=== PATIENT | male | born 1945 | race Two or more races ===

== ENCOUNTER 2018-02-26 06:15 | Inpatient (IN) | payer MEDICARE, BC ==
--- NOTE | 2018-02-25 23:15 | Pre-op HX & Phy Repo 2 SIG ---
DATE OF ADMISSION: 02/26/2018 ATTENDING PHYSICIAN: Hayden Allen M.D. REASON FOR ADMISSION: Left knee total arthroplasty. HISTORY OF PRESENT ILLNESS: The patient is a 72-year-old male with history of osteoarthritis of the knee. He has had previous right knee replacement and now presents with left knee pain and scheduled for left total knee arthroplasty. The patient denies history of coronary artery disease, chest pain, and shortness of breath, but complains of dyspnea on exertion. PAST MEDICAL HISTORY: 1. Depression. 2. Diabetes. 3. Osteoarthritis. MEDICATIONS: Include Lexapro 10 mg daily, magnesium 200 mg daily, metformin 500 mg twice a day, and omega-3 daily. ALLERGIES: None known. REVIEW OF SYSTEMS: GENERAL: Denies weight loss, fever, chills, or night sweats. HEENT: Denies headache or sinus problem. PULMONARY: Denies cough or sputum production. CARDIOVASCULAR: Complains of dyspnea on exertion and fatigue. GASTROINTESTINAL: Denies dysphagia, dyspepsia, abdominal pain, nausea, vomiting, diarrhea, or constipation. GENITOURINARY: Denies dysuria or hematuria. MUSCULOSKELETAL: As noted above. PHYSICAL EXAMINATION: VITAL SIGNS: Blood pressure is 130/80, temperature afebrile, and heart rate is 84. GENERAL: The patient is an oriented male with mild obesity. HEENT: Unremarkable. NECK: Supple. LUNGS: Without rales or wheezes. CARDIAC: Examination S1 and S2 are normal without S3, S4. Jugular venous pressure is normal. ABDOMEN: Soft, obese, and nontender. Bowel sounds are present. EXTREMITIES: Without cyanosis, clubbing, or edema. DIAGNOSTIC DATA: EKG showed sinus rhythm with nonspecific ST-T changes with heart rate of 84 beats per minute. In view of his age and dyspnea on exertion, the patient underwent exercise echo study, which showed normal LV wall motion, without evidence of ischemia. Ejection fraction was 55%. There is mild mitral and aortic insufficiency noted. IMPRESSION: 1. Osteoarthritis of the knees with left knee pain. 2. Diabetes, out of control. 3. Depression. 4. Obesity. PLAN AND SUGGESTIONS: The patient is stable to proceed with surgery as planned and he will be followed postoperatively for management of his diabetes. He will be encouraged to ambulation to avoid thromboembolic complications. DVT prophylaxis will be initiated. The patient will be restarted on his oral medications . Blood sugars will be monitored postoperatively. Dr. Allen, thank you for allowing me to participate in the care of this patient and I will be happy to follow with you as necessary. Rick Boland M.D. DR: SANDIP JOB#: [id number] CC: Rick Boland M.D.; Fax#: [phone] The Chart
[~2018-02-26] VITALS: Ht 167.6 cm; Wt 97.5 kg
[2018-02-26] VITALS (13 sets, daily range): BP systolic 111–146; BP diastolic 15–87
[~2018-02-26 06:15] MED LIST: ASPIR 8181 MG ORAL; FISH OIL 1,0001 EAC4 ORAL; LEXAPRO10 MG ORAL; MAGNESIUM200 M1 PO; METFORMIN HCL500 M1 ORAL; celeBREX 200mg Cap **SURGERY PATIENTS ONLY ORAL ONE; oxyCONTIN 20mg tab ORAL ONE
[2018-02-26] MEDS ORDERED: ceFAZolin 1gm IVPB IVPB ONE ×2 (07:00)
--- NOTE | 2018-02-26 07:03 | Pre-Procedure Note/Attestation ---
Pre-Procedure Note/Attestation Complete Prior to Procedure Planned Procedure: left Procedure Narrative: lt total knee arthroplasty Indications for Procedure Pre-Operative Diagnosis: left knee arthritis Attestation I attest that I discussed the nature of the procedure; its benefits; risks and complications; and alternatives (and the risks and benefits of such alternatives ), prior to the procedure, with the patient (or the patient's legal graphic art sales representative). I attest that, if there was a reasonable possibility of needing a blood transfusion, the patient (or the patient's legal graphic art sales representative) was given the [facility] standardized written summary, pursuant to the Kit Lin Blood Safety Act ([place] Health and Safety Code # 1645, as amended). I attest that I re-evaluated the patient just prior to the surgery and that there has been no change in the patient's H&P, except as documented below: none Hayden Allen MD Feb 26, 2018 07:03
[2018-02-26] MEDS ORDERED: Milk of Magnesia 30ml Ud ORAL PRN (07:15)
[2018-02-26] MEDS ORDERED: Norco 5mg/325mg tab ORAL PRN (07:15)
[2018-02-26] MEDS ORDERED: HYDROmorphone 1mg/ml Carpuject SUBQ PRN (07:15)
--- NOTE | 2018-02-26 07:40 | Anethesia Preoperative Eval ---
Anesthesia Pre-op PMH/ROS General Date of Evaluation: Feb 26, 2018 Anesthesiologist: Bro ASA Score: ASA 2 Mallampati Score Class I : Soft palate, uvula, fauces, pillars visible Class II: Soft palate, uvula, fauces visible Class III: Soft palate, base of uvula visible Class IV: Only hard plate visible Mallampati Classification: Class III Surgeon: Tiffany Diagnosis: LEft knee OA Surgical Procedure: LEft TKR Anesthesia History: none Family History: no anesthesia problems Allergies: Coded Allergies: No Known Allergies (Verified , 05/30/11) Patient NPO?: Yes NPO Date: Feb 25, 2018 NPO Time: 2100 Past Medical History Cardiovascular: Denies: HTN, CAD, MT, valve dz, arrhythmia, other Pulmonary: Denies: asthma, COPD, RACHNA, other Gastrointestinal/Genitourinary: Denies: GERD, CRI, ESRD, other Neurologic/Psychiatric: Reports: depression/anxiety; Denies: dementia, CVA, TIA, other Endocrine: Reports: DM; Denies: hypothyroidism, steroids, other HEENT: Denies: cataract (L), cataract (R), glaucoma, YAKUTAT (L), YAKUTAT (R), other Hematology/Immune: Denies: anemia, DVT, bleeding disorder, other Musculoskeletal/Integumentary: Denies: OA, RA, DJD, DDD, edema, other PSxH Narrative: Right TKR Anesthesia Pre-op Phys. Exam Physician Exam Last Vital Signs Date Time Temp Pulse Resp B/P (MAP) Pulse Ox O2 Delivery O2 Flow Rate FiO2 02/26/18 07:06 97.8 80 20 142/87 (105) 95 02/26/18 06:51 Room Air Constitutional: NAD Cardiovascular: RRR Respiratory: CTA Airway Exam Mallampati Score: Class III MO: limited ROM: full Teeth: intact Anesthesia Pre-op A/P Labs see chart Studies Pre-op Studies: EKG - sr at 84, echo - stress ECHO-EF 55%, normal left wall motion, mild AI and MR Risk Assessment & Plan Assessment: ASA II Plan: SAB with GA and left femoral nerve block Status Change Before Surgery: No Pre-Antibiotics Drug: Ancef 2g Given Within 1 Hr of Incision: Yes Time Given: 10:15 Iris Pugh MD Feb 26, 2018 07:40
[2018-02-26] MEDS ORDERED: NeoSporin Gu Irrig 1ml Amp IRRIG ONE ×2 (09:21→11:26)
[2018-02-26] MEDS ORDERED: Bacitracin 50000 Units Vial ONE (09:21)
[2018-02-26] MEDS ORDERED: Tranexamic Acid 500 MG in NS 55 ML IVPB ONE (09:30)
[2018-02-26] MEDS ORDERED: Lidocaine 1% MPF 10mg/ml 5ml ONE (09:49)
[2018-02-26] MEDS ORDERED: LR 1000ml ONE (09:49)
[2018-02-26] MEDS ORDERED: Midazolam 2mg/2ml Inj ONE (09:49)
[2018-02-26] MEDS ORDERED: Propofol 200mg/20ml IV ONE (09:49)
[2018-02-26] MEDS ORDERED: fentaNYL 100 mcg/2 mL IV ONE (09:49)
[2018-02-26] MEDS ORDERED: Bupivacaine 0.5% Inj 30 ml vial INJ ONE (09:58)
[2018-02-26] MEDS ORDERED: Morphine Sulfate PF 10 ML ONE (10:05)
[2018-02-26] MEDS ORDERED: Ropivacaine 5mg/ml Vial 30ml INJ ONE (10:22)
[2018-02-26] MEDS ORDERED: LR 1000ml 1,000 ML IVLG SCH (10:40)
[2018-02-26] MEDS ORDERED: LORazepam Inj 2mg/ml 1ml IV PRN (10:45)
[2018-02-26] MEDS ORDERED: DiphenhydrAMINE 50mg/ml Inj IVP PRN (10:45)
[2018-02-26] MEDS ORDERED: fentaNYL 100 mcg/2 mL IV PRN (10:45)
[2018-02-26] MEDS ORDERED: Hydromorphone 0.5mg/0.5ml inj IVP PRN (10:45)
[2018-02-26] MEDS ORDERED: Bacitracin 50000 Units Vial IRRIG ONE (11:26)
[2018-02-26] MEDS ORDERED: NS Irrig 2000ml IRRIG ONE (11:27)
--- NOTE | 2018-02-26 12:25 | Brief Operative Note ---
Immediate Post Operative Note Operative Note Chief Complaint: left knee pain Pre-op Diagnosis: left knee arthritis Procedure: left total knee arthroplasty Post-op Diagnosis: same as pre-op Findings: consistent w/pre-op dx studies Surgeon: md nitesh Safety Person: ginny mcelroy Anesthesiologist: md page Anesthesia: general Specimen: yes Complications: none Condition: stable Fluids: ns Estimated Blood Loss: minimal Drains: none Implant(s) used?: Yes - [place] and nephew Whit Mcelroy Feb 26, 2018 12:25
--- NOTE | 2018-02-26 12:39 | Immediate Post-Op Evaluation ---
Immediate Post-Op Evalulation Immediate Post-Op Evalulation Procedure: Left TKR Date of Evaluation: Feb 26, 2018 Time of Evaluation: 12:40 IV Fluids: 1.7L Blood Products: 0 Estimated Blood Loss: 125 Urinary Output: 150 Blood Pressure Systolic: 125 Blood Pressure Diastolic: 58 Pulse Rate: 72 Respiratory Rate: 18 O2 Sat by Pulse Oximetry: 97 Temperature (Fahrenheit): 97.2 Pain Score (1-10): 0 Nausea: No Vomiting: No Complications 0 Patient Status: awake, reacts, patent, none Hydration Status: adequate Drug: Ancef 2g Given Within 1 Hr of Incision: Yes Time Given: 10:15 Iris Pugh MD Feb 26, 2018 12:39
--- NOTE | 2018-02-26 14:47 | Cardiology Progress Note ---
Assessment/Plan Status Narrative 1. DJD- 2. s/p L TKA 3. DM 4. Obesity 5. Depression Assessment/Plan Resume PO meds Monitor BS Pain management PT/Ot as per Dr. Allen CBC in AM Discussed with RN and with Dr. Allen. Subjective Cardiovascular: Reports: no symptoms Respiratory: Reports: no symptoms Gastrointestinal/Abdominal: Reports: no symptoms Genitourinary: Reports: no symptoms Subjective 02/26/18- s/p L TKA , pain controlled Objective Last 24 Hour Vital Signs Date Time Temp Pulse Resp B/P (MAP) Pulse Ox O2 Delivery O2 Flow Rate FiO2 02/26/18 13:15 72 15 137/60 99 Nasal Cannula 3 02/26/18 13:05 73 19 133/63 99 Nasal Cannula 3 02/26/18 12:55 73 14 135/55 99 Nasal Cannula 3 02/26/18 12:45 73 13 130/60 98 Simple Mask 6 02/26/18 12:40 79 15 112/53 98 Simple Mask 6 02/26/18 12:39 72 18 97 02/26/18 12:35 97.2 72 18 125/58 97 Simple Mask 6 02/26/18 07:06 97.8 80 20 142/87 (105) 95 02/26/18 06:51 Room Air Cardiovascular: normal rate, regular rhythm Respiratory/Chest: lungs clear Abdomen: normal bowel sounds, non tender, soft, no organomegaly Extremities: other - L knee wrapped, ice pack in place Rick Boland MD Feb 26, 2018 14:47
--- NOTE | 2018-02-26 15:35 | Diagnostic Imaging Report ---
Indication: Left knee pain 2 views of the left knee were obtained. Findings: Cemented total knee arthroplasty demonstrated. Postsurgical changes including soft tissue air mostly in the anterior part of the knee noted. No abnormalities of alignment or position of the prosthetic identified. No fracture seen. IMPRESSION: Status post left total knee replacement
[2018-02-26] MEDS ORDERED: oxyCONTIN 20mg tab ORAL SCH ×2 (16:00→16:30)
[2018-02-26] MEDS: D5 1/2NS w/KCl 20mEq 1,000 ML IV SCH ×2 (16:17→21:22)
[2018-02-26] MEDS: Docusate 100mg cap ORAL SCH (17:36)
[2018-02-26] MEDS: ceFAZolin sod 1 GM in D5W 55 ML IV SCH (17:36)
[2018-02-26] MEDS: metFORMIN 500mg tab ORAL SCH (17:36)
--- NOTE | 2018-02-26 23:30 | Operative Note - Dictated ---
DATE OF OPERATION: 02/26/2018 PREOPERATIVE DIAGNOSIS: Left knee end-stage arthritis with loss of full extension. POSTOPERATIVE DIAGNOSIS: Left knee end-stage arthritis with loss of full extension. PROCEDURE: Left total knee arthroplasty using Balderas and Nephew system with a Legion nonporous femoral cobalt chromium component size 7, size 5 tibial component, and a size 9 mm ultra cross-linked Legion deep-dish polyethylene with 32 mm patellar component, all cemented. SURGEON: Hayden Allen M.D. MANAGER APPLICATION: Whit Ovalles PA-C. ANESTHESIOLOGIST: Dr. Crabtree. ANESTHESIA: Spinal anesthesia combined with femoral nerve block. ESTIMATED BLOOD LOSS: Less than 100 mL. TOURNIQUET TIME: 79 minutes. COMPLICATIONS: None. BRIEF HISTORY: The patient is a very pleasant 72-year-old gentleman who has had ongoing left knee pain, limping, inability to walk for prolonged period of time. He failed all nonoperative treatment. He had a flexion contracture by about 7 degrees. After full discussion of risks and benefits of surgery and complications associated with it including infection, bleeding, neurovascular complication, possibility of DVT and PEs, loss of motion, infection requiring revision surgery, infection requiring resection arthroplasty, as well as other complications that may arise that are unknown, he opted for surgical treatment as described above. OPERATIVE PROCEDURE: The patient was brought to the operating room table and was placed supine. All pressure points were well-padded. Spinal anesthesia was induced. A femoral block was performed. Left knee was prepped and draped in usual sterile fashion after time-out was performed, tranexamic acid was given, and preop antibiotic was given. A standard anterior approach to the knee was undertaken. Medial parapatellar arthrotomy was performed. The patella was everted. The deep fibers of MCL were also released. The medial and lateral meniscus were resected. ACL and PCL were resected. Intramedullary access into the femur was obtained using a drill. An intramedullary guide was placed and distal femoral cut was performed in about 5 degrees of valgus. Once this was completed, sizing was performed and size 7 appeared to be the right-sized femur. At this point, the distal femoral cutting guide was placed in about 3 degrees of external rotation and anterior, posterior, and chamfer cuts were performed without any complications. At this point, a trial femur was applied and appeared to be in excellent position and excellent fit. Peg holes were well-punched. At this point, care was given to the tibia. The extramedullary tibial guide was applied. Medial, lateral, and posterior retractors were placed in. The patellar tendon was protected at this point, re-creating mechanical access, the standard tibial cut was performed taking 3 mm off the most-involved side. Once this was completed, the flexion-extension gap was checked. It was excellent. The flexion deformity had corrected. There was no need for optional cut. At this point, the medial and lateral laxity appeared to be perfect and there was excellent ligamentous balancing. At this point, all wounds were thoroughly irrigated using copious amount of fluid. The sizing of the tibia was performed and size 5 appeared to be the right size. This was placed in about 1-2 degrees of external rotation and the central stem was then punched without any complication. At this point, care was given to the patella. The patella was everted. The patellar thickness was checked and appeared to be 24 mm. At this point, standard patellar cut was performed with freehand technique and 13 mm patella was remaining. At this point, sizing was performed and 32 mm patella appeared to be the right size. The peg holes were drilled. At this point, the femoral component, tibial component, and patellar components were all trialed and a 9 mm poly was inserted. The 9 mm poly allowed full extension, full flexion, excellent stability at 0, 30 degrees, 45 degrees, and 90 degrees of flexion and there was excellent patellofemoral tracking. There was no hyperextension. At this point, all trial components were removed. The wounds were thoroughly irrigated and cement was mixed and the tibial component, femoral component, patellar components were all cemented without any complication. The excess cement was all removed. The wounds were thoroughly irrigated again. Trialing was performed. A 9 mm poly appeared to be the right size. Therefore, 9 mm poly was then locked in without any complication. The locking mechanism was checked and rechecked and appeared to be perfect. At this point, all wounds were thoroughly irrigated again. The tourniquet was deflated. There was minimal bleeding. The extensor mechanism was closed using #1 Vicryl suture. Subcutaneous tissue was closed using 2-0 Vicryl suture. Skin was closed using 3-0 Monocryl suture. All lap counts and instrument counts were correct. Hayden Allen M.D. DR: Lewis JOB#: [id number] CC:
[2018-02-27 00:19] VITALS: BP 119/61
[2018-02-27] MEDS: ceFAZolin sod 1 GM in D5W 55 ML IV SCH (02:06)
[2018-02-27 04:32] VITALS: BP 106/76
[2018-02-27 07:17] LABS: BASOPHILS % (AUTO) 0.7 % (0.0-2.0); EOSINOPHILS % (AUTO) 1.6 % (0.0-3.0); HEMATOCRIT 42.5 % (42.0-52.0); HEMOGLOBIN 14.8 G/DL (14.2-18.0); LYMPHOCYTES % (AUTO) 17.4 % (20.0-45.0); MEAN CORPUSCULAR VOLUME 88 FL (80-99); MONOCYTES % (AUTO) 12.1 % (1.0-10.0); NEUTROPHILS % (AUTO) 68.2 % (45.0-75.0); PLATELET COUNT 168 K/UL (150-450); RED BLOOD COUNT 4.83 M/UL (4.70-6.10); RED CELL DISTRIBUTION WIDTH 11.6 % (11.6-14.8); WHITE BLOOD COUNT 12.8 K/UL (4.8-10.8)
[2018-02-27 07:23] LABS: ANION GAP 8 mmol/L (5-15); BLOOD UREA NITROGEN 24 mg/dL (7-18); CALCIUM 8.5 MG/DL (8.5-10.1); CARBON DIOXIDE 25 MMOL/L (21-32); CHLORIDE 104 MMOL/L (98-107); CREATININE 1.6 MG/DL (0.55-1.30); POTASSIUM 4.1 MMOL/L (3.5-5.1); SODIUM 137 MMOL/L (136-145)
[2018-02-27 08:00] VITALS: BP 118/62
--- NOTE | 2018-02-27 08:16 | Orthopedic Progress Note ---
Orthopedic - Progress Note Subjective Symptoms: improved Objective Laboratory Tests Test 02/27/18 06:04 White Blood Count 12.8 K/UL (4.8-10.8) H Red Blood Count 4.83 M/UL (4.70-6.10) Hemoglobin 14.8 G/DL (14.2-18.0) Hematocrit 42.5 % (42.0-52.0) Mean Corpuscular Volume 88 FL (80-99) Mean Corpuscular Hemoglobin 30.7 PG (27.0-31.0) Mean Corpuscular Hemoglobin Concent 34.9 G/DL (32.0-36.0) Red Cell Distribution Width 11.6 % (11.6-14.8) Platelet Count 168 K/UL (150-450) Mean Platelet Volume 9.2 FL (6.5-10.1) Neutrophils (%) (Auto) 68.2 % (45.0-75.0) Lymphocytes (%) (Auto) 17.4 % (20.0-45.0) L Monocytes (%) (Auto) 12.1 % (1.0-10.0) H Eosinophils (%) (Auto) 1.6 % (0.0-3.0) Basophils (%) (Auto) 0.7 % (0.0-2.0) Sodium Level 137 MMOL/L (136-145) Potassium Level 4.1 MMOL/L (3.5-5.1) Chloride Level 104 MMOL/L (98-107) Carbon Dioxide Level 25 MMOL/L (21-32) Anion Gap 8 mmol/L (5-15) Blood Urea Nitrogen 24 mg/dL (7-18) H Creatinine 1.6 MG/DL (0.55-1.30) H Estimat Glomerular Filtration Rate 42.9 mL/min (>60) Glucose Level 154 MG/DL (74-106) H Calcium Level 8.5 MG/DL (8.5-10.1) Last 24 Hour Vital Signs Date Time Temp Pulse Resp B/P (MAP) Pulse Ox O2 Delivery O2 Flow Rate FiO2 02/27/18 06:58 98.4 02/27/18 04:32 98.4 102 17 106/76 (86) 98 02/27/18 00:19 98.2 86 19 119/61 (80) 95 02/26/18 21:54 Nasal Cannula 2.0 02/26/18 21:43 98.0 02/26/18 20:23 98.0 83 17 111/55 (73) 95 02/26/18 15:30 97.7 84 20 127/60 (82) 95 02/26/18 14:30 97.8 68 18 136/64 (88) 95 02/26/18 14:00 97.8 76 20 146/79 (101) 02/26/18 13:45 98.3 74 18 134/58 99 Nasal Cannula 3 02/26/18 13:30 72 18 133/60 99 Nasal Cannula 3 02/26/18 13:15 72 15 137/60 99 Nasal Cannula 3 02/26/18 13:05 73 19 133/63 99 Nasal Cannula 3 02/26/18 12:55 73 14 135/55 99 Nasal Cannula 3 02/26/18 12:45 73 13 130/60 98 Simple Mask 6 02/26/18 12:40 79 15 112/53 98 Simple Mask 6 02/26/18 12:39 72 18 97 02/26/18 12:35 97.2 72 18 125/58 97 Simple Mask 6 Intake and Output 02/26/18 02/27/18 19:00 07:00 Intake Total 2260 ml 1030 ml Output Total 275 ml 500 ml Balance 1985 ml 530 ml Intake Oral 360 ml 600 ml IV Total 1900 ml 430 ml Output Urine Total 150 ml 500 ml Estimated Blood Loss 125 ml # Voids 1 Laboratory Tests Test 02/27/18 06:04 White Blood Count 12.8 K/UL (4.8-10.8) H Red Blood Count 4.83 M/UL (4.70-6.10) Hemoglobin 14.8 G/DL (14.2-18.0) Hematocrit 42.5 % (42.0-52.0) Mean Corpuscular Volume 88 FL (80-99) Mean Corpuscular Hemoglobin 30.7 PG (27.0-31.0) Mean Corpuscular Hemoglobin Concent 34.9 G/DL (32.0-36.0) Red Cell Distribution Width 11.6 % (11.6-14.8) Platelet Count 168 K/UL (150-450) Mean Platelet Volume 9.2 FL (6.5-10.1) Neutrophils (%) (Auto) 68.2 % (45.0-75.0) Lymphocytes (%) (Auto) 17.4 % (20.0-45.0) L Monocytes (%) (Auto) 12.1 % (1.0-10.0) H Eosinophils (%) (Auto) 1.6 % (0.0-3.0) Basophils (%) (Auto) 0.7 % (0.0-2.0) Sodium Level 137 MMOL/L (136-145) Potassium Level 4.1 MMOL/L (3.5-5.1) Chloride Level 104 MMOL/L (98-107) Carbon Dioxide Level 25 MMOL/L (21-32) Anion Gap 8 mmol/L (5-15) Blood Urea Nitrogen 24 mg/dL (7-18) H Creatinine 1.6 MG/DL (0.55-1.30) H Estimat Glomerular Filtration Rate 42.9 mL/min (>60) Glucose Level 154 MG/DL (74-106) H Calcium Level 8.5 MG/DL (8.5-10.1) Wound: clean, dry, intact Drains: none Neuro Status: normal Vascular Status: normal Additional Comments Xray reviewed: excellent Assessment Post-op Diagnosis POD 1 Procedure Performed left total knee arthroplasty Plan Plan: PT, discharge plan - likely home Sunday with services and DME Whit Ovalles Feb 27, 2018 08:16
[2018-02-27] MEDS: celeBREX 200mg Cap **SURGERY PATIENTS ONLY ORAL SCH (08:59)
[2018-02-27] MEDS: oxyCONTIN 20mg tab ORAL SCH ×2 (09:01→19:54)
[2018-02-27] MEDS: metFORMIN 500mg tab ORAL SCH ×2 (09:02→18:28)
[2018-02-27] MEDS: Docusate 100mg cap ORAL SCH ×3 (09:02→17:52)
[2018-02-27] MEDS: Magnesium Oxide 400mg tab ORAL SCH (09:02)
[2018-02-27] MEDS: Enoxaparin 30mg Inj SUBQ SCH ×2 (09:06→19:56)
--- NOTE | 2018-02-27 09:22 | 48 Hour Post Anesthesia Eval ---
Post Anesthesia Evaluation Procedure: Left TKR Date of Evaluation: Feb 27, 2018 Time of Evaluation: 09:21 Blood Pressure Systolic: 116 0: 74 Pulse Rate: 68 Respiratory Rate: 20 Temperature (Fahrenheit): 97.6 O2 Sat by Pulse Oximetry: 98 Airway: patent Nausea: No Vomiting: No Pain Intensity: 3 Hydration Status: adequate Cardiopulmonary Status: stable Mental Status/LOC: patient returned to baseline Follow-up Care/Observations: n/a Post-Anesthesia Complications: none Follow-up care needed: N/A Lennox Bautista MD Feb 27, 2018 09:22
[2018-02-27 12:00] VITALS: BP 110/61
[2018-02-27] MEDS: HYDROcodone/Acetamin 7.5/325 tab ORAL PRN (14:16)
[2018-02-27] MEDS ORDERED: Tubing IV Blood Pump IV ONE (15:39)
[2018-02-27] MEDS ORDERED: Tubing IV Secondary IV ONE (15:39)
[2018-02-27 16:00] VITALS: BP 132/65
--- NOTE | 2018-02-27 16:50 | Cardiology Progress Note ---
Assessment/Plan Status Narrative 1. DJD- 2. s/p L TKA- doing well 3. DM- controlled 4. Obesity 5. Depression Assessment/Plan MOM Monitor BS Pain management PT/Ot as per Dr. Allen Ambulate Discussed with RN and with Dr. Allen. DC as per Dr. Allen. Subjective Cardiovascular: Reports: no symptoms; Denies: chest pain, lightheadedness Respiratory: Reports: no symptoms Gastrointestinal/Abdominal: Reports: constipated Genitourinary: Reports: no symptoms, other - victor m dc'd Subjective 02/26/18- s/p L TKA , pain controlled 02/27 ambulated, using IS, no CP or SOB Objective Last 24 Hour Vital Signs Date Time Temp Pulse Resp B/P (MAP) Pulse Ox O2 Delivery O2 Flow Rate FiO2 02/27/18 16:00 96.6 80 19 132/65 (87) 93 02/27/18 14:46 97.5 02/27/18 12:00 97.5 92 21 110/61 (77) 98 02/27/18 09:22 68 20 98 02/27/18 09:00 Room Air 02/27/18 08:00 98.0 55 20 118/62 (80) 97 02/27/18 06:58 98.4 02/27/18 04:32 98.4 102 17 106/76 (86) 98 02/27/18 00:19 98.2 86 19 119/61 (80) 95 02/26/18 21:54 Nasal Cannula 2.0 02/26/18 21:43 98.0 02/26/18 20:23 98.0 83 17 111/55 (73) 95 Cardiovascular: normal rate, regular rhythm Respiratory/Chest: lungs clear Abdomen: normal bowel sounds, non tender, soft, distended Extremities: non-tender, no calf tenderness, no swelling Intake and Output 02/26/18 02/27/18 19:00 07:00 Intake Total 2260 ml 1105 ml Output Total 275 ml 500 ml Balance 1985 ml 605 ml Intake Oral 360 ml 600 ml IV Total 1900 ml 505 ml Output Urine Total 150 ml 500 ml Estimated Blood Loss 125 ml # Voids 1 Laboratory Tests Test 02/27/18 06:04 White Blood Count 12.8 K/UL (4.8-10.8) H Red Blood Count 4.83 M/UL (4.70-6.10) Hemoglobin 14.8 G/DL (14.2-18.0) Hematocrit 42.5 % (42.0-52.0) Mean Corpuscular Volume 88 FL (80-99) Mean Corpuscular Hemoglobin 30.7 PG (27.0-31.0) Mean Corpuscular Hemoglobin Concent 34.9 G/DL (32.0-36.0) Red Cell Distribution Width 11.6 % (11.6-14.8) Platelet Count 168 K/UL (150-450) Mean Platelet Volume 9.2 FL (6.5-10.1) Neutrophils (%) (Auto) 68.2 % (45.0-75.0) Lymphocytes (%) (Auto) 17.4 % (20.0-45.0) L Monocytes (%) (Auto) 12.1 % (1.0-10.0) H Eosinophils (%) (Auto) 1.6 % (0.0-3.0) Basophils (%) (Auto) 0.7 % (0.0-2.0) Sodium Level 137 MMOL/L (136-145) Potassium Level 4.1 MMOL/L (3.5-5.1) Chloride Level 104 MMOL/L (98-107) Carbon Dioxide Level 25 MMOL/L (21-32) Anion Gap 8 mmol/L (5-15) Blood Urea Nitrogen 24 mg/dL (7-18) H Creatinine 1.6 MG/DL (0.55-1.30) H Estimat Glomerular Filtration Rate 42.9 mL/min (>60) Glucose Level 154 MG/DL (74-106) H Calcium Level 8.5 MG/DL (8.5-10.1) Rick Boland MD Feb 27, 2018 16:50
[2018-02-27 20:01] VITALS: BP 136/89
[2018-02-28] VITALS: BP 134/82
[2018-02-28 04:00] VITALS: BP 137/58
[2018-02-28 06:19] LABS: BASOPHILS % (AUTO) 0.3 % (0.0-2.0); EOSINOPHILS % (AUTO) 0.3 % (0.0-3.0); HEMOGLOBIN 13.9 G/DL (14.2-18.0); LYMPHOCYTES % (AUTO) 11.3 % (20.0-45.0); MEAN CORPUSCULAR VOLUME 88 FL (80-99); MONOCYTES % (AUTO) 9.9 % (1.0-10.0); NEUTROPHILS % (AUTO) 78.3 % (45.0-75.0); PLATELET COUNT 164 K/UL (150-450); RED BLOOD COUNT 4.56 M/UL (4.70-6.10); RED CELL DISTRIBUTION WIDTH 11.7 % (11.6-14.8); WHITE BLOOD COUNT 16.3 K/UL (4.8-10.8)
--- NOTE | 2018-02-28 07:30 | Orthopedic Progress Note ---
Orthopedic - Progress Note Subjective Symptoms: c/o post-op knee pain, other - high WBCs today, no temp Additional Comments walked a lot yesterday, has done well with CPM Objective Laboratory Tests Test 02/28/18 05:09 White Blood Count 16.3 K/UL (4.8-10.8) H Red Blood Count 4.56 M/UL (4.70-6.10) L Hemoglobin 13.9 G/DL (14.2-18.0) L Hematocrit 40.0 % (42.0-52.0) L Mean Corpuscular Volume 88 FL (80-99) Mean Corpuscular Hemoglobin 30.6 PG (27.0-31.0) Mean Corpuscular Hemoglobin Concent 34.9 G/DL (32.0-36.0) Red Cell Distribution Width 11.7 % (11.6-14.8) Platelet Count 164 K/UL (150-450) Mean Platelet Volume 9.8 FL (6.5-10.1) Neutrophils (%) (Auto) 78.3 % (45.0-75.0) H Lymphocytes (%) (Auto) 11.3 % (20.0-45.0) L Monocytes (%) (Auto) 9.9 % (1.0-10.0) Eosinophils (%) (Auto) 0.3 % (0.0-3.0) Basophils (%) (Auto) 0.3 % (0.0-2.0) Last 24 Hour Vital Signs Date Time Temp Pulse Resp B/P (MAP) Pulse Ox O2 Delivery O2 Flow Rate FiO2 02/28/18 04:00 98.5 57 19 137/58 (84) 96 02/28/18 00:00 98.6 57 20 134/82 (99) 94 02/27/18 21:00 Room Air 02/27/18 20:26 98.8 02/27/18 20:01 98.8 54 19 136/89 (105) 93 02/27/18 16:00 96.6 80 19 132/65 (87) 93 02/27/18 14:46 97.5 02/27/18 12:00 97.5 92 21 110/61 (77) 98 02/27/18 09:22 68 20 98 02/27/18 09:00 Room Air 02/27/18 08:00 98.0 55 20 118/62 (80) 97 Intake and Output 02/27/18 02/28/18 19:00 07:00 Intake Total 345 ml 860 ml Output Total 325 ml 500 ml Balance 20 ml 360 ml Intake Oral 120 ml 860 ml IV Total 225 ml Output Urine Total 325 ml 500 ml Laboratory Tests Test 02/28/18 05:09 White Blood Count 16.3 K/UL (4.8-10.8) H Red Blood Count 4.56 M/UL (4.70-6.10) L Hemoglobin 13.9 G/DL (14.2-18.0) L Hematocrit 40.0 % (42.0-52.0) L Mean Corpuscular Volume 88 FL (80-99) Mean Corpuscular Hemoglobin 30.6 PG (27.0-31.0) Mean Corpuscular Hemoglobin Concent 34.9 G/DL (32.0-36.0) Red Cell Distribution Width 11.7 % (11.6-14.8) Platelet Count 164 K/UL (150-450) Mean Platelet Volume 9.8 FL (6.5-10.1) Neutrophils (%) (Auto) 78.3 % (45.0-75.0) H Lymphocytes (%) (Auto) 11.3 % (20.0-45.0) L Monocytes (%) (Auto) 9.9 % (1.0-10.0) Eosinophils (%) (Auto) 0.3 % (0.0-3.0) Basophils (%) (Auto) 0.3 % (0.0-2.0) Wound: clean, dry, intact Drains: none Neuro Status: normal Vascular Status: normal Assessment Post-op Diagnosis POD 2 Procedure Performed left total knee arthroplasty Plan Plan: pain management, discharge plan - likely home tomorrow. , other - labs ordered for hWit Scott Feb 28, 2018 07:30
[2018-02-28 08:00] VITALS: BP 146/69
[2018-02-28] MEDS: HYDROcodone/Acetamin 7.5/325 tab ORAL PRN (08:06)
[2018-02-28] MEDS: Magnesium Oxide 400mg tab ORAL SCH (09:11)
[2018-02-28] MEDS: celeBREX 200mg Cap **SURGERY PATIENTS ONLY ORAL SCH (09:11)
[2018-02-28] MEDS: Metamucil Pkt ORAL SCH ×3 (09:11→18:07)
[2018-02-28] MEDS: metFORMIN 500mg tab ORAL SCH ×2 (09:11→18:07)
[2018-02-28] MEDS: oxyCONTIN 20mg tab ORAL SCH ×2 (09:12→20:44)
[2018-02-28] MEDS: Docusate 100mg cap ORAL SCH ×3 (09:12→18:07)
[2018-02-28] MEDS: Enoxaparin 30mg Inj SUBQ SCH ×2 (09:15→20:48)
[2018-02-28 11:50] VITALS: BP 144/72
[2018-02-28 16:30] VITALS: BP 138/81
[2018-02-28] MEDS ORDERED: Miralax 17gm pkt ORAL PRN (19:30)
[2018-02-28 20:00] VITALS: BP 149/68
[2018-03-01] VITALS: BP 158/65
[2018-03-01 04:00] VITALS: BP 148/92
[2018-03-01 06:32] LABS: BASOPHILS % (AUTO) 0.5 % (0.0-2.0); EOSINOPHILS % (AUTO) 1.4 % (0.0-3.0); HEMATOCRIT 39.4 % (42.0-52.0); HEMOGLOBIN 13.5 G/DL (14.2-18.0); LYMPHOCYTES % (AUTO) 22.1 % (20.0-45.0); MEAN CORPUSCULAR VOLUME 87 FL (80-99); MONOCYTES % (AUTO) 8.8 % (1.0-10.0); NEUTROPHILS % (AUTO) 67.2 % (45.0-75.0); PLATELET COUNT 169 K/UL (150-450); RED BLOOD COUNT 4.52 M/UL (4.70-6.10); RED CELL DISTRIBUTION WIDTH 11.6 % (11.6-14.8); WHITE BLOOD COUNT 13.1 K/UL (4.8-10.8)
[2018-03-01 08:00] VITALS: BP 124/67
[2018-03-01] MEDS: Magnesium Oxide 400mg tab ORAL SCH (08:36)
[2018-03-01] MEDS: celeBREX 200mg Cap **SURGERY PATIENTS ONLY ORAL SCH (08:36)
[2018-03-01] MEDS: oxyCONTIN 20mg tab ORAL SCH (08:36)
[2018-03-01] MEDS: Docusate 100mg cap ORAL SCH (08:37)
[2018-03-01] MEDS: Metamucil Pkt ORAL SCH (08:37)
[2018-03-01] MEDS: metFORMIN 500mg tab ORAL SCH (08:37)
[2018-03-01] MEDS: Enoxaparin 30mg Inj SUBQ SCH (08:41)
[2018-03-01 12:04] VITALS: BP 123/80
--- NOTE | 2018-03-02 12:05 | Discharge Summary ---
Discharge Summary Hospital Course Date of Admission Feb 26, 2018 at 06:15 Date of Discharge Mar 01, 2018 at 13:30 Admitting Diagnosis left knee arthritis Reason for Hospitalization: elective surgery HPI 72-year-old male with history of knee osteoarthritis . He had previous right knee replacement and now presented with left knee pain and was scheduled for left total knee arthroplasty. Consultations Dr Boland- IM Procedures s/p 02/26/[address] Allen Left total knee arthroplasty using [employer] and [employer] system with a Legion nonporous femoral cobalt chromium component size 7, size 5 tibial component, and a size 9 mm ultra cross-linked Legion deep-dish polyethylene with 32 mm patellar component, all cemented. Hospital Course s/p surgery course of recovery uneventful pain management addressed , and pain was controlled ambulated with PT /OT fall precautions maintained neurovascular status closely monitored, remained intact dressing clean DVT prophylaxis provided incentive spirometry (while in the bed) encouraged blood sugar was closely monitored, metformin was continued home medications resumed bowel regimen instituted tolerated diet voided freely hemodynamically stable patient was stable for discharge home with home health services discharge instruction provided outpatient follow-up with surgeon as advised FINAL DIAGNOSES DJD/ left knee arthritis s/p left total knee arthroplasty DM Obesity Depression Discharge Medications Continued Medications: Aspirin* (Aspir 81*) 81 Mg Tablet.dr 81 MG ORAL DAILY, TAB (This prescription has been renewed) Escitalopram Oxalate* (Lexapro*) 10 Mg Tablet 10 MG ORAL DAILY, TAB (This prescription has been renewed) Magnesium (Magnesium) 200 Mg Tablet 200 MG PO DA, TAB (This prescription has been renewed) Metformin Hcl* (Metformin Hcl*) 500 Mg Tablet 500 MG ORAL TWICE A DAY, TAB (This prescription has been renewed) [place]-3 Fatty Acids/Fish Oil (Fish Oil 1,000 Mg Softgel) 1 Each Capsule 1 CAP ORAL DAILY, #30 CAP 0 Refills (This prescription has been renewed) Discharge Discharge Disposition Patient was discharged to Home () Discharge Instructions Discharge Instructions Special Instructions I have been assigned to complete a D/C Summary on this account. I was not involved in the patient management Lien Wall NP Mar 02, 2018 12:05
== END 2018-03-01 13:30 | disposition home health service (06) | DRG 470 ==
LOC: SDSOVERFLO 06:15 → 3E 14:09
PROC: 0SRD0J9 Replacement of Left Knee Joint with Synthetic Substitute, Cemented, Open Approach (ICD-10-PCS; principal; 2018-02-26 08:30)
DX: M17.12 Unilateral primary osteoarthritis, left knee (principal); Z96.651 Presence of right artificial knee joint; E11.65 Type 2 diabetes mellitus with hyperglycemia; F32.9 Major depressive disorder, single episode, unspecified; E66.9 Obesity, unspecified; Z79.84 Long term (current) use of oral hypoglycemic drugs; Z79.82 Long term (current) use of aspirin
CPT/HCPCS: 36415; 80048; 82962; 85025; 86850; 86900; 86901; 86920; 87081; 94003; 94150; J2250